=== PATIENT | female | born 1980 | race Caucasian/White ===

== ENCOUNTER → 2018-04-23 | Outpatient (CLI) | payer OTHER ==
[~2018-04-23] MED LIST: APAP500 PO; BACTRIM DS TAB1 EACH PO; DIAZEPAM 10 MG10 M1 PO; HYDROCODON-ACE1 EAC5 PO; HYDROCODON-ACE1 EAC7 PO; IBUPROFEN 200200 M1 PO; LO-OVRAL-281 EACH PO; LORAZEPAM 1 MG T1 M1 PO; MOBIC7.5 M1 PO; NADOLOL 20 MG T20 M1 PO; NORCO 10-325 T1 EACH PO; NORCO 5-325 TA1 EACH PO; NORGESTREL-ETH1 EAC1 PO; ONDANSETRON HCL4 M1 PO; TOPAMAX 100 MG100 MG PO
== END ==
LOC: HYPER 04-21 09:16
DX: T81.89XA Other complications of procedures, not elsewhere classified, initial encounter (principal); M25.572 Pain in left ankle and joints of left foot; M79.672 Pain in left foot; M19.90 Unspecified osteoarthritis, unspecified site; F11.20 Opioid dependence, uncomplicated; F41.9 Anxiety disorder, unspecified; Z87.01 Personal history of pneumonia (recurrent); Y92.89 Other specified places as the place of occurrence of the external cause; Y83.8 Other surgical procedures as the cause of abnormal reaction of the patient, or of later complication, without mention of misadventure at the time of the procedure

== ENCOUNTER → 2018-05-06 | Outpatient (CLI) | payer OTHER | LOC: HYPER 06:44 | DX: T81.89XD Other complications of procedures, not elsewhere classified, subsequent encounter (principal); M19.90 Unspecified osteoarthritis, unspecified site; F11.20 Opioid dependence, uncomplicated; F17.200 Nicotine dependence, unspecified, uncomplicated; F41.9 Anxiety disorder, unspecified; Y83.8 Other surgical procedures as the cause of abnormal reaction of the patient, or of later complication, without mention of misadventure at the time of the procedure ==

== ENCOUNTER 2018-05-14 13:39 | Inpatient (IN) | payer OTHER ==
[~2018-05-14] VITALS: Ht 157.5 cm; Wt 69.4 kg
--- NOTE | ~2018-05-14 | HC ---
[facility] [place] [address] CONSULTATION Name: JORDY BIRCH Room #: 455-P ADM IN M.R.#: [id number] Admission: 05/14/18 Attend Phys: Andrea Zaragoza Discharge: Date of : 80 Report #: [id number] THIS REPORT FOR: //name// CC: Be Barron DATE OF SERVICE: 05/15/2018 CHIEF COMPLAINT: Left heel and left dorsal foot surgical wound. HISTORY OF PRESENT ILLNESS: This is a 38-year-old female patient who has been followed by Dr. Daljit Mayfield and Dr. Parker for quite some time. She has very complex history with originally with a trimalleolar fracture. She has had multiple operative interventions and requiring numerous surgeries. She has had recent hardware removal by Dr. Parker. The heel and dorsal foot ulcers incisions have not healed well. She has developed increasing pain and drainage, is admitted for intravenous antibiotic therapy and further evaluation and treatment. PAST MEDICAL HISTORY: Positive for hypertension, multiple ankle and foot surgeries, anxiety, arthritis, chronic pain syndrome, likely complex regional pain syndrome, chronic opioid dependence. SOCIAL HISTORY: The patient has history of smoking cigarettes in the past, states she has quit within the last year. She has used marijuana in the past. Denies alcohol use. FAMILY HISTORY: Noncontributory. MEDICATIONS: Include hydrocodone, Topamax, Advil, nadolol, norgestrel and ethinyl estradiol, lorazepam, diazepam. REVIEW OF SYSTEMS: CONSTITUTIONAL: No fever, chills, weight loss. NEUROLOGICAL: The patient denies focal weakness. EYES: The patient denies visual changes, redness or drainage. ENT: The patient denies earache, nasal drainage or sore throat. CARDIOVASCULAR: The patient denies chest pain, palpitations or diaphoresis. PULMONARY: The patient denies cough or shortness of breath GASTROINTESTINAL: The patient denies nausea, vomiting or diarrhea. ORTHOPEDIC: The patient does note pain, drainage from her left foot. Other systems in a 14-point review of systems are negative. PHYSICAL EXAMINATION: [facility] [address] [place] [address] CONSULTATION Name: JORDY BIRCH Room #: 455-P [facility] IN ..#: [id number] Admission: 05/14/18 Attend Phys: Andrea Zaragoza Discharge: Date of : 80 Report #: [id number] VITAL SIGNS: At this time include pulse 82, respiratory rate 16, blood pressure 100/68, temperature 97.6. GENERAL: This is a well-developed, well-nourished female patient who appears to be in no distress. HEENT: Normocephalic. Nose is clear. LUNGS: Clear. HEART: Regular rhythm. ABDOMEN: Soft. Bowel sounds present. EXTREMITIES: Examination of the lower extremities demonstrates minimal edema. She has diminished distal pulses. She has surgical wound on the dorsal aspect of the left foot and left posterior heel. Both are 100% covered with fibrin and there is some surrounding erythema and some drainage. NEUROLOGIC: She is alert, oriented and appropriate. LABORATORY DATA: Includes sodium 143, potassium 3.4, CO2 27, BUN 11, creatinine 0.9, glucose of 84, total protein 7.5, albumin 3.6. White blood cell count 6.3 with hemoglobin 12.0, hematocrit of 35.5. IMAGING DATA: Arterial Doppler demonstrates no hemodynamic stenosis. CLINICAL IMPRESSION: 1. Surgical wound to the left foot that is slow to heal. 2. Cellulitis and wound infection, left foot. 3. Normal arterial anatomy. RECOMMENDATIONS: At this point in time, we will recommend a bordered foam to both areas for the time being, elevation of the extremities. Intravenous antibiotic therapy would be appropriate. We will continue to follow her closely. I appreciate being asked to see her in consultation. <ELECTRONICALLY SIGNED> By: Cal Pan MD 05/18/181909 27 [id number] Cal Pan MD /nt
--- NOTE | ~2018-05-14 | HC ---
[facility] [place] [address] CONSULTATION Name: JORDY BIRCH Room #: 455-P ADM IN M.R.#: [id number] Admission: 05/14/18 Attend Phys: Andrea Zaragoza Discharge: Date of : 80 Report #: [id number] THIS REPORT FOR: //name// CC: Be Barron HISTORY OF PRESENT ILLNESS: The patient is a 38-year-old white female with cellulitis of the foot and ankle. The patient suffered a trimalleolar fracture in 2010. She has had multiple surgeries to try to correct subsequent defects. She says her last procedure was the . This was another attempt to drop the forefoot to offload the heel and have the patient walk more centered. This was done approximately 10 weeks ago. The patient developed abundance of cellulitis and wound infection. She was started on Levaquin after a wound culture done on 05/06/2018, sent to [facility] and grew Enterobacter. This organism was resistant to Keflex, but sensitive to Levaquin, doxycycline and Bactrim. The report showed susceptibility to cefepime, but Rocephin was not reported. The patient was started on Levaquin, but developed evidence of cellulitis of the foot with redness, warmth, pain and swelling in the forefoot and ankle. She was admitted to the hospital on 05/14/2018. Infectious disease consultation was requested on the , but not transmitted until the 05/17. PAST HISTORY: Otherwise unremarkable. The patient has a history of migraine. She has a past history of hypertension, which she says is no longer current. She does have chronic pain from her ankle and has been seeing a pain specialist for narcotic and benzodiazepine therapy. ALLERGIES: SHE NOTES AN ALLERGY TO PENICILLIN A CHILD. IT CAUSED A RASH. SHE ALSO NOTES ALLERGY TO OXYCODONE. SOCIAL HISTORY: The patient is . She has a 12-year-old son. She is disabled by her ankle condition. She was a cigarette smoker of less than half a pack per day, but quit in the last year. She denies smoking other substances. No history of alcohol or other illegal drugs. REVIEW OF SYSTEMS: The patient is not complaining of fevers, chills or sweats. She is not complaining of head, neck, chest, GI or problems. She has a chronic ankle and foot pain. She notes that the cellulitic changes have improved here in the hospital. PHYSICAL EXAMINATION: GENERAL: The patient appears stated age, alert, oriented, comfortable, pleasant, not in any distress. VITAL SIGNS: Show the patient to be afebrile since coming to the hospital. Blood pressure 112/64. [address] [address] CONSULTATION Name: JORDY BIRCH Room #: 455-P [facility] IN M.R.#: [id number] Admission: 05/14/18 Attend Phys: Andrea Zaragoza Discharge: Date of : 80 Report #: [id number] SKIN: Shows no rash, lesion or exanthem except for the foot as described below. Head, neck, chest and abdominal examination are unremarkable. The patient has excellent pulses. The nails are in good repair. The left foot was undressed. There is a wound on the dorsum probably from surgery, which is about 3 cm in length and about 0.5 cm in width. There is moderate amount of fibrinous debris and healing skin on this area. There is not a lot of cellulitic changes. On the heel on the posterior aspect near the insertion of the Achilles is a wound about 2 x 2 cm. It is 80% granulation and 20% fibrin. The patient had cellphone pictures. Apparently 2 months ago, this was about a 4 x 4 cm eschar over most of the posterior heel. About a month ago, it was about a 3 x 3 cm area of granulation tissue with some fibrin. It clearly is getting smaller and improving. The foot itself has some muscular deformity with a drop foot and inversion. This shows a bit of soft tissue swelling and slight erythema. The foot and ankle are tender when I tried to palpate a pulse. LABORATORY DATA: White count is 6.0; hemoglobin 12.9 and platelet 204,000. Electrolytes, BUN, creatinine and glucose are normal. In summary, the patient with a chronic wound on the heel and a surgical wound on the dorsum of her foot, which have been slow to heal. In this setting, she developed cellulitis, which cultured out Enterobacter. I would suggest that instead of using the quinolone that we change to a cephalosporin antibiotic. Rocephin would be convenient with its once a day dosing, but with the antibiotic resistance I am hesitant to use an unreported drug. We will use cefepime 2 g IV every 12 hours. I would like to check for metabolic impediments to wound healing such as low zinc, low thyroid level. I would like to repeat the culture of the wound as it has now been about 2 weeks on antibiotics to make sure there is no new resistance. I will have the dietitian give a zinc, multivitamin and Jaron supplements. The patient currently is using silver foam on the wound. We may want to consider a more sophisticated dressing possibly using a collagenase to try to dissolve the remaining fibrin and some of the biofilm on the wound. The patient may then benefit from a collagen product like Candice. I think offloading would be important as well. The patient says that she lies in bed with her foot up on the pillow floating the heel. This is great, but often the foot tends to fall of the pillow. The patient may benefit from something like a total contact cast to completely offload the wound until it heals. I am not sure if the patient will need further surgical debridement of the heel wound. It looks like the dorsal wound may benefit from a bedside debridement under topical anesthesia. For now, we will repeat cultures, check for metabolic impediments and change the antibiotic from Levaquin to cefepime. Dr. Fernández will return tomorrow and assume care. I will leave to him whether to plan to go home on an outpatient parenteral therapy versus oral antibiotics. [address] [address] CONSULTATION Name: KEENAJORDY VILLAFANA Room #: 455-P [facility] IN M.R.#: [id number] Admission: 05/14/18 Attend Phys: Andrea Zaragoza Discharge: Date of : 80 Report #: [id number] Thank you again for this consultation. By: [id number] Ray Pepper MD /nt
[2018-05-14 15:00] VITALS: BP 131/88
[2018-05-14] MEDS ORDERED: TOPAMAX 100 MG100 MG PO (16:04)
[2018-05-14 16:54] LABS: ABSOLUTE NEUTROPHILS 3.5 thou/uL (1.4-8.2); BASOPHILS 0.4 % (0.0-2.0); EOSINOPHILS 4.9 % (0.0-3.0); HEMATOCRIT 39.6 % (37.0-47.0); HEMOGLOBIN 13.4 gm/dL (12.0-15.0); LYMPHOCYTES 33.9 % (24.0-44.0); MCHC 33.8 g/dL (28.0-37.0); MCV 94.9 fL (80.0-100.0); MONOCYTES 8.9 % (1.0-8.0); PLATELET COUNT 215 thou/uL (150-400); POLYS 51.9 % (36.0-66.0); RBC 4.17 mil/uL (4.20-5.00); WBC 6.7 thou/uL (4.0-11.0)
[2018-05-14 17:11] LABS: ALBUMIN 3.6 g/dL (3.4-5.0); CREATININE 0.9 mg/dL (0.6-1.0); MAGNESIUM 2.1 mg/dL (1.8-2.4); POTASSIUM 3.4 mmol/L (3.5-5.1); TOTAL BILIRUBIN 0.4 mg/dL (<0.1-1.0); TOTAL PROTEIN 7.5 g/dL (6.4-8.2)
[2018-05-14 18:02] LABS: URINE BILIRUBIN NEGATIVE (Negative); URINE BLOOD 2+ (Negative); URINE CLARITY CLEAR; URINE COLOR YELLOW; URINE GLUCOSE-RANDOM* NEGATIVE (Negative); URINE KETONES NEGATIVE (Negative); URINE LEUKOCYTES-REFLEX NEGATIVE (Negative); URINE NITRITE-REFLEX NEGATIVE (Negative); URINE PROTEIN (DIPSTICK) NEGATIVE (Negative); URINE SPECIFIC GRAVITY 1.015 (1.005-1.035); URINE UROBILINOGEN 0.2 E.U./dl (0.2-1.0)
[2018-05-14 18:13] LABS: CASTS None Seen /LPF (None Seen); CRYSTALS None Seen /LPF (None Seen); SQUAMOUS 4-10 Moderate /LPF (0-3); URINE RBC 0-2 Rare /HPF (0-2)
[2018-05-14 18:14] LABS: URINE WBC-REFLEX 0-5 Rare /HPF (0-5)
[2018-05-14 19:54] VITALS: BP 108/58
[2018-05-15 04:00] VITALS: BP 110/66
[2018-05-15 06:26] LABS: HEMATOCRIT 35.5 % (37.0-47.0); MCH 32.2 pg (26.0-34.0); MCV 94.8 fL (80.0-100.0); RBC 3.74 mil/uL (4.20-5.00); RDW 14.1 % (10.5-14.5); WBC 6.3 thou/uL (4.0-11.0)
[2018-05-15 08:30] VITALS: BP 103/68
[2018-05-15 09:15] VITALS: BP 107/66
[2018-05-15 15:47] VITALS: BP 104/70
[2018-05-15 19:29] VITALS: BP 100/68
[2018-05-16 05:19] VITALS: BP 110/66
[2018-05-16 06:53] LABS: HEMATOCRIT 38.5 % (37.0-47.0); HEMOGLOBIN 12.9 gm/dL (12.0-15.0); MCHC 33.5 g/dL (28.0-37.0); MCV 95.7 fL (80.0-100.0); RBC 4.02 mil/uL (4.20-5.00); RDW 13.9 % (10.5-14.5)
[2018-05-16 07:06] LABS: CALCIUM 8.7 mg/dL (8.5-10.1); CREATININE 0.7 mg/dL (0.6-1.0); POTASSIUM 3.7 mmol/L (3.5-5.1)
[2018-05-16 14:30] VITALS: BP 121/79
[2018-05-16 19:43] VITALS: BP 109/71
[2018-05-17 03:25] VITALS: BP 112/71
[2018-05-17 09:54] VITALS: BP 108/76
[2018-05-17 14:37] VITALS: BP 105/73
[2018-05-17 19:40] VITALS: BP 112/64
[2018-05-18 04:37] VITALS: BP 101/63
[2018-05-18 05:58] LABS: HEMATOCRIT 40.2 % (37.0-47.0); HEMOGLOBIN 13.2 gm/dL (12.0-15.0); MCH 31.5 pg (26.0-34.0); MCV 95.7 fL (80.0-100.0); RBC 4.2 mil/uL (4.20-5.00); WBC 6.4 thou/uL (4.0-11.0)
[2018-05-18 06:09] LABS: CALCIUM 8.6 mg/dL (8.5-10.1); CREATININE 0.7 mg/dL (0.6-1.0); POTASSIUM 3.5 mmol/L (3.5-5.1)
[2018-05-18 07:26] VITALS: BP 109/68
[2018-05-18 14:20] VITALS: BP 116/74
[2018-05-18 15:49] VITALS: BP 116/74
[2018-05-18 20:00] VITALS: BP 111/72
[2018-05-19 02:48] VITALS: BP 99/63
[2018-05-19 07:59] VITALS: BP 113/63
[2018-05-19 17:12] VITALS: BP 113/77
[2018-05-19 19:11] VITALS: BP 112/69
[2018-05-19 19:16] VITALS: BP 110/64
[2018-05-20 08:30] VITALS: BP 113/82
[2018-05-20 20:00] VITALS: BP 121/78
[2018-05-21 07:25] VITALS: BP 112/81
[2018-05-21 19:32] VITALS: BP 112/71
[2018-05-22 08:14] VITALS: BP 121/82
[2018-05-22 11:49] VITALS: BP 116/74
[2018-05-22 12:34] VITALS: BP 116/74
[2018-05-22] MEDS ORDERED: MORPHINE SULFAT15 M3 PO (14:58)
[2018-05-22] MEDS ORDERED: ZINC SULFATE 2220 M1 PO (15:07)
[2018-05-22] MEDS ORDERED: INVANZ 1GM/NS 101 GM IV (16:20)
[2018-05-22 16:40] VITALS: BP 116/74
== END 2018-05-22 18:44 | disposition home health service (06) | DRG 592 ==
LOC: 4W 13:39 → SICU 05-19 21:52
PROVIDERS: Hospitalist; Internal Medicine
PROC: 05HB33Z Insertion of Infusion Device into Right Basilic Vein, Percutaneous Approach (ICD-10-PCS; principal; 2018-05-22)
DX: L97.529 Non-pressure chronic ulcer of other part of left foot with unspecified severity (principal); E43 Unspecified severe protein-calorie malnutrition; F11.20 Opioid dependence, uncomplicated; L03.116 Cellulitis of left lower limb; M19.90 Unspecified osteoarthritis, unspecified site; I10 Essential (primary) hypertension; G89.4 Chronic pain syndrome; G43.909 Migraine, unspecified, not intractable, without status migrainosus; F12.90 Cannabis use, unspecified, uncomplicated; F41.1 Generalized anxiety disorder; Z88.6 Allergy status to analgesic agent; Z88.0 Allergy status to penicillin; Z79.899 Other long term (current) drug therapy
CPT/HCPCS: 10047; 15002; 27000

== ENCOUNTER → 2018-05-14 | Outpatient (CLI) | payer OTHER | LOC: HYPER 08:35 | DX: T81.89XD Other complications of procedures, not elsewhere classified, subsequent encounter (principal); M19.90 Unspecified osteoarthritis, unspecified site; F11.20 Opioid dependence, uncomplicated; F17.200 Nicotine dependence, unspecified, uncomplicated; F41.9 Anxiety disorder, unspecified; Y83.8 Other surgical procedures as the cause of abnormal reaction of the patient, or of later complication, without mention of misadventure at the time of the procedure ==

== ENCOUNTER → 2018-06-10 | Outpatient (CLI) | payer OTHER ==
[~2018-06-10] MED LIST changes: +INVANZ 1GM/NS 101 GM IV; +MORPHINE SULFAT15 M3 PO; +ZINC SULFATE 2220 M1 PO
== END ==
LOC: HYPER 05-13 11:34
DX: T81.89XD Other complications of procedures, not elsewhere classified, subsequent encounter (principal); L97.422 Non-pressure chronic ulcer of left heel and midfoot with fat layer exposed; L97.521 Non-pressure chronic ulcer of other part of left foot limited to breakdown of skin; M19.90 Unspecified osteoarthritis, unspecified site; F11.20 Opioid dependence, uncomplicated; F17.200 Nicotine dependence, unspecified, uncomplicated; F41.9 Anxiety disorder, unspecified; Y83.8 Other surgical procedures as the cause of abnormal reaction of the patient, or of later complication, without mention of misadventure at the time of the procedure

== ENCOUNTER → 2018-06-24 | Outpatient (CLI) | payer OTHER | LOC: HYPER 06:53 | DX: T81.31XD Disruption of external operation (surgical) wound, not elsewhere classified, subsequent encounter (principal); M25.572 Pain in left ankle and joints of left foot; M79.672 Pain in left foot; M19.90 Unspecified osteoarthritis, unspecified site; F17.200 Nicotine dependence, unspecified, uncomplicated; F11.20 Opioid dependence, uncomplicated; F41.9 Anxiety disorder, unspecified; Y83.8 Other surgical procedures as the cause of abnormal reaction of the patient, or of later complication, without mention of misadventure at the time of the procedure ==

== ENCOUNTER → 2018-07-14 | Outpatient (CLI) | payer OTHER | LOC: HYPER 06:37 | DX: T81.89XD Other complications of procedures, not elsewhere classified, subsequent encounter (principal); L97.422 Non-pressure chronic ulcer of left heel and midfoot with fat layer exposed; L97.521 Non-pressure chronic ulcer of other part of left foot limited to breakdown of skin; L84 Corns and callosities; M19.90 Unspecified osteoarthritis, unspecified site; F11.20 Opioid dependence, uncomplicated; F17.200 Nicotine dependence, unspecified, uncomplicated; F41.9 Anxiety disorder, unspecified; Y83.8 Other surgical procedures as the cause of abnormal reaction of the patient, or of later complication, without mention of misadventure at the time of the procedure ==

== ENCOUNTER 2018-09-12 15:34 | Inpatient (IN) | payer OTHER ==
[~2018-09-12] VITALS: Ht 157.5 cm; Wt 70.9 kg
[2018-09-12 15:39] VITALS: BP 140/97
[2018-09-12] MEDS ORDERED: OXYCONTIN10 M1 PO (16:01)
[2018-09-12] MEDS ORDERED: AMITRIPTYLINE H25 M2 PO (16:01)
[2018-09-12] MEDS ORDERED: ATIVAN1 MG PO (16:02)
[2018-09-12] MEDS ORDERED: EFFEXOR XR37.5 MG PO (16:02)
[2018-09-12] MEDS ORDERED: TROKENDI XR200 MG PO (16:02)
[2018-09-12] MEDS ORDERED: ERRIN0.35 MG PO (16:03)
[2018-09-12 16:30] LABS: URINE BILIRUBIN NEGATIVE (Negative); URINE BLOOD TRACE (Negative); URINE CLARITY CLEAR; URINE COLOR YELLOW; URINE GLUCOSE-RANDOM* NEGATIVE (Negative); URINE KETONES 3+ (Negative); URINE LEUKOCYTES-REFLEX NEGATIVE (Negative); URINE NITRITE-REFLEX NEGATIVE (Negative); URINE PROTEIN (DIPSTICK) NEGATIVE (Negative); URINE SPECIFIC GRAVITY <= 1.005 (1.005-1.035); URINE UROBILINOGEN 0.2 E.U./dl (0.2-1.0)
[2018-09-12 16:33] LABS: URINE REDUCING SUBSTANCE NEGATIVE
[2018-09-12 17:06] LABS: ABSOLUTE NEUTROPHILS 11.1 thou/uL (1.4-8.2); BASOPHILS 0.5 % (0.0-2.0); EOSINOPHILS 0.3 % (0.0-3.0); HEMATOCRIT 43.5 % (37.0-47.0); HEMOGLOBIN 14.5 gm/dL (12.0-15.0); MCH 30.3 pg (26.0-34.0); MCHC 33.4 g/dL (28.0-37.0); MCV 90.8 fL (80.0-100.0); MONOCYTES 6.8 % (1.0-8.0); POLYS 80.4 % (36.0-66.0); RBC 4.79 mil/uL (4.20-5.00); RDW 13.5 % (10.5-14.5); WBC 13.8 thou/uL (4.0-11.0)
[2018-09-12 17:16] LABS: CREATININE 0.6 mg/dL (0.6-1.0); POTASSIUM 3.6 mmol/L (3.5-5.1)
[2018-09-12 17:22] LABS: ALBUMIN 3.8 g/dL (3.4-5.0); TOTAL BILIRUBIN 1.2 mg/dL (<0.1-1.0); TOTAL PROTEIN 8.2 g/dL (6.4-8.2)
[2018-09-12 17:30] LABS: PLATELET COUNT 243 thou/uL (150-400)
[2018-09-12 19:55] VITALS: BP 129/94
[2018-09-12 20:40] VITALS: BP 129/94
[2018-09-13 00:32] LABS: HEMATOCRIT 37.1 % (37.0-47.0); HEMOGLOBIN 12.5 gm/dL (12.0-15.0)
--- NOTE | 2018-09-13 01:11 | NUR ---
PT ARRIVED BY ED PT ORIENTATED TO ROOM AND CALL LIGHT PT GIVEN MORPHINE FOR PAIN PT USED CALL LIGHT EFFECTIVELY NO ISSUES OVERNIGHT.
[2018-09-13 03:39] VITALS: BP 106/69
[2018-09-13 08:32] VITALS: BP 109/82
--- NOTE | 2018-09-13 11:22 | NUR ---
TOWARDS POC PT A/O X4, VSS, AFEBRILE, PAIN MANAGED BY MEDS-SEE MAR. NO BM NOTED TODAY. REMAINED ON PRECAUTIONARY ISO. NO CONCERNS VOICED. WILL CONTINUE TO MONITOR.
[2018-09-13 15:22] VITALS: BP 97/67
[2018-09-13 19:20] VITALS: BP 106/75
[2018-09-14 00:24] LABS: HEMATOCRIT 32.6 % (37.0-47.0); HEMOGLOBIN 10.9 gm/dL (12.0-15.0)
[2018-09-14 03:40] VITALS: BP 103/63
[2018-09-14 03:58] LABS: HEMOGLOBIN 11.2 gm/dL (12.0-15.0); MCH 30.9 pg (26.0-34.0); MCHC 33.9 g/dL (28.0-37.0); MCV 91.3 fL (80.0-100.0); RBC 3.62 mil/uL (4.20-5.00); RDW 13.4 % (10.5-14.5); WBC 6.2 thou/uL (4.0-11.0)
[2018-09-14 04:15] LABS: CALCIUM 7.9 mg/dL (8.5-10.1); CREATININE 0.5 mg/dL (0.6-1.0); POTASSIUM 3.5 mmol/L (3.5-5.1)
--- NOTE | 2018-09-14 06:00 | NUR ---
Pt. rested quietly at intervals during the night when checked on during frequent rounds. She c/o abdominal pain and was given pain meds (see emar) with some relief noted.
[2018-09-14 08:00] VITALS: BP 119/80
--- NOTE | 2018-09-14 09:58 | NUR ---
TOWARDS POC PT A/O X4, VSS, AFEBRILE, PAIN MANAGED BY MEDS. NO CONCERNS VOICED. WILL CONTINUE TO MONITOR.
--- NOTE | 2018-09-14 12:22 | NUR ---
PT ADMITTED RELATED TO COLITIS. CM REVIEWED CHART AND SPOKE WITH CARE TEAM. CM MET WITH PT AT BEDSIDE. PT IS A&0X4. CM ROLE INTRODUCED. PT INDICATED SHE LIVES IN A HOUSE WITH HER SPOUSE AND SON. PT INDICATED NO STEPS TO ENTER THROUGH THE GARAGE AND 2 STEPS INSIDE. 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 PT INDICATED SHE ANTICPATES RETURNING HOME ONCE MEDICALLY STABLE. CM TO FOLLOW INDICATED WITH DC PLANNING.
[2018-09-14 15:00] VITALS: BP 103/68
--- NOTE | 2018-09-14 17:47 | NUR ---
WOUND CONSULT: PT. WAS SEEN TODAY BY DR. LEMA AND MYSELF. PT. IS WELL KNOWN TO THE WOUND CARE TEAM. PT. HAS A HEALING ULCER TO HER LEFT HEEL. RECOMMENDATIONS: TRIPLE ANTIBOTIC CREAM AND BANDAID, COMPLETE CARES DAILY PT. AND STAFF NURSE WERE INSTRUCTED ON PLAN OF CARE.
[2018-09-14 19:07] VITALS: BP 103/69
[2018-09-15 04:12] VITALS: BP 113/70
[2018-09-15 06:18] LABS: HEMATOCRIT 35.7 % (37.0-47.0); HEMOGLOBIN 11.7 gm/dL (12.0-15.0)
--- NOTE | 2018-09-15 06:29 | NUR ---
Pt. rested quietly at intervals during the night when checked on during frequent rounds. She c/o chronic abdominal pain and was given pain meds (see emar) with some relief noted. No c/o nausea.
[2018-09-15 07:19] VITALS: BP 97/67
--- NOTE | 2018-09-15 08:47 | NUR ---
ASSUMED PT CARE AT 0700. ASSESSMENT COMPLETED AND IS CHARTED. VSS. PT REPORTS LOWER ABD. PAIN RATED 7/10 DESCRIBED SHARP STABBING. MORPHINE GIVEN ORDERED. PT DENIES NAUSEA/VOMITTING. PT IS ALERT/ORIENTED X4. NO OTHER CONCERNS OR COMPAINTS AT THIS TIME. ANTICIPATING DISMISSAL TODAY. WILL CONTINUE CURRENT CARE.
[2018-09-15] MEDS ORDERED: LEVAQUIN 500 M500 M3 PO (09:03)
[2018-09-15] MEDS ORDERED: OXYCODONE HCL10 MG PO (09:03)
[2018-09-15 12:48] VITALS: BP 97/67
[2018-09-15 12:50] VITALS: BP 97/67
--- NOTE | 2018-09-15 13:40 | NUR ---
DISCHARGE INSTRUCTIONS GIVEN TO PATIENT. IV REMOVED. DISMISSED IN STABLE CONDITION VIA WHEELCHAIR TO HOME.
--- NOTE | 2018-09-17 13:50 | HC ---
[facility] [place] [address] CONSULTATION Name: JORDY BIRCH Room #: 457-P [facility] IN M.R.#: [id number] Admission: 09/12/18 ������������������ Attend Phys: Jimbo Donovan MD Discharge: 09/15/18 ������������������ Date of : 80 Report #: [id number] THIS REPORT FOR: //name// CC: Jimbo Jamison DATE OF SERVICE: 09/14/2018 CHIEF COMPLAINT: Ulceration to the lower extremities and left heel. HISTORY OF PRESENT ILLNESS: This is a 38-year-old female patient with whom I am familiar from previous hospitalization. She has been followed previously by Dr. Mayfield and Dr. Parker. She originally had a trimalleolar fracture, multiple operative interventions requiring numerous surgeries. She had her previous hardware removed. She had heel and dorsal foot ulcers. The dorsal foot ulcers have healed. The heel has somewhat persisted, although she has improved. PAST MEDICAL HISTORY: Positive for hypertension, multiple foot and ankle surgeries, arthritis, chronic pain syndrome and history of chronic opioid dependence. MEDICATIONS: Include amitriptyline, diazepam, levofloxacin, lorazepam, norethindrone, oxycodone, topiramate and venlafaxine. ALLERGIES: ALLERGY TO PENICILLIN. SOCIAL HISTORY: Positive for history of tobacco use, negative for alcohol use. FAMILY HISTORY: Noncontributory. REVIEW OF SYSTEMS: CONSTITUTIONAL: The patient denies fever, chills or weight loss. NEUROLOGIC: The patient denies focal weakness, numbness or tingling. EYES: The patient denies visual changes, redness or drainage. ENT: The patient denies earache, nasal drainage or sore throat. CARDIOVASCULAR: The patient denies chest pain, palpitations or diaphoresis. PULMONARY: The patient denies cough or shortness of breath. GASTROINTESTINAL: The patient denies nausea, vomiting, diarrhea or abdominal pain. ORTHOPEDIC: The patient does complain of some pain and remaining ulceration on her left heel. Other systems in a 14-point review of systems are negative. PHYSICAL EXAMINATION: VITAL SIGNS: At this time include temperature 97.7, pulse 70, respiratory rate 16 and blood pressure 119/80. GENERAL: This is a chronically ill-appearing female [place] [address] CONSULTATION Name: JORDY BIRCH Room #: 457-P [facility] IN M.R.#: [id number] Admission: 09/12/18 ������������������ Attend Phys: Jimbo Donovan MD Discharge: 09/15/18 ������������������ Date of : 80 Report #: [id number] in minimal distress. HEENT: Examination of the head, normocephalic. Nose and throat are clear. NECK: Supple. LUNGS: Clear. ABDOMEN: Soft. Bowel sounds present. EXTREMITIES: Lower extremities demonstrate palpable distal pulses. She has a small circular ulceration on her left posterior heel that is mainly covered with a crusty scab that is easily peeled away, revealing a fairly healthy clean base. CLINICAL IMPRESSION: 1. Surgical wound to the left posterior heel. 2. History of multiple previous foot surgeries. 3. Hypertension. 4. Chronic pain syndrome. RECOMMENDATIONS: At this point in time, we will recommend topical antibiotic ointment and a Band-Aid or bordered gauze to the heel, to be changed daily. I think ambulation is permissible and she should likely do well. We have recommended ongoing aggressive nutritional support. The patient is agreeable to the current plan of care. I do appreciate being asked to see her in consultation. ��������������������������������������������� <ELECTRONICALLY SIGNED> ���������������������������������������� By: Cal Pan MD ��������������������������������������������� 09/17/18 1350 [id number] [id number] Cal Pan MD /nt
== END 2018-09-15 13:30 | disposition home or self-care (01) | DRG 372 ==
LOC: ER 15:34 → 4W 19:19 → EROBS 19:19 → 4W 20:41
PROVIDERS: Nurse Practitioner Acute Care; Physician Assistant; ADMIT Hospitalist
DX: A04.9 Bacterial intestinal infection, unspecified (principal); L97.429 Non-pressure chronic ulcer of left heel and midfoot with unspecified severity; K62.5 Hemorrhage of anus and rectum; F11.20 Opioid dependence, uncomplicated; D62 Acute posthemorrhagic anemia; K64.9 Unspecified hemorrhoids; E86.0 Dehydration; F17.210 Nicotine dependence, cigarettes, uncomplicated; G89.4 Chronic pain syndrome; F41.9 Anxiety disorder, unspecified; M19.90 Unspecified osteoarthritis, unspecified site; Z79.899 Other long term (current) drug therapy; Z88.5 Allergy status to narcotic agent; Z88.0 Allergy status to penicillin
CPT/HCPCS: 10045